=== PATIENT | male | born 1980 | race Asian ===

== ENCOUNTER 2023-09-28 17:10 | Emergency (ER) | payer MEDICAID ==
[~2023-09-28] VITALS: Ht 165.1 cm; Wt 68.0 kg
[2023-09-28 17:22] VITALS: BP_SYST 120; PULSE 96; RESP 15; TEMP 97; O2SAT 95
[2023-09-28 17:51] LABS: BASOPHILS # (AUTO) 0.1 K/uL (0.0-0.2); BASOPHILS % (AUTO) 0.4 % (0.0-2.0); EOSINOPHILS # (AUTO) 1.2 K/uL (0.0-0.4); EOSINOPHILS % (AUTO) 8.6 % (0.0-4.0); HEMATOCRIT 40.2 % (36-54); HEMOGLOBIN 13.4 g/dL (14.0-18.0); LYMPHOCYTES # (AUTO) 1.1 K/uL (1.0-5.5); LYMPHOCYTES % (AUTO) 8.1 % (20.5-51.5); MEAN CORPUSCULAR HEMOGLOBIN 29 pg (27-31); MEAN CORPUSCULAR HGB CONC 33 % (32-36); MEAN CORPUSCULAR VOLUME 86 fL (79.0-98.0); MONOCYTES # (AUTO) 0.9 K/uL (0.0-1.0); MONOCYTES % (AUTO) 6.6 % (1.7-9.3); NEUTROPHILS # (AUTO) 10.3 K/uL (1.8-7.7); NEUTROPHILS % (AUTO) 76.3 % (40.0-70.0); PLATELET COUNT (AUTO) 375 K/uL (130-430); RED BLOOD CELL COUNT(AUTO) 4.69 MIL/uL (4.2-6.2); RED CELL DISTRIBUTION WIDTH 13.1 % (9.0-15.0); WHITE BLOOD COUNT (AUTO) 13.5 K/uL (4.8-10.8)
[2023-09-28 18:23] LABS: CALCIUM 8.3 mg/dL (8.4-11.0); CREATININE 1.08 mg/dL (0.55-1.30); POTASSIUM 3.8 mmol/L (3.5-5.1)
[2023-09-28 18:37] LABS: BILIRUBIN,DIRECT 0.1 mg/dL (0.0-0.3); TOTAL BILIRUBIN 0.3 mg/dL (0.0-1.0); TOTAL PROTEIN, SERUM 7.5 g/dL (6.4-8.3)
[2023-09-28] MEDS ORDERED: DOXY100C5 PO (20:31)
[2023-09-28] MEDS ORDERED: IBUP-1971 PO (20:33)
[2023-09-28] MEDS ORDERED: HYDR-3917 PO (20:33)
[2023-09-28 21:05] LABS: BILIRUBIN,URINE NEGATIVE (NEGATIVE); BLOOD, URINE NEGATIVE (NEGATIVE); CLARITY/URINE CLEAR (CLEAR); COLOR,URINE YELLOW (YELLOW); GLUCOSE,URINE NEGATIVE (NEGATIVE); KETONES,URINE NEGATIVE (NEGATIVE); LEUKOCYTE ESTERASE ,URINE NEGATIVE (NEGATIVE); NITRITE, URINE NEGATIVE (NEGATIVE); PROTEIN URINE NEGATIVE (NEGATIVE); UROBILINOGEN,URINE 0.2 (0.2-1.0)
[2023-09-28] MEDS: cefTRIAXone 1 GM in LIDOCAINE 1%, 20 ML MDV 2.1 ML IM ONE (21:13)
[2023-09-28] MEDS: AZITHROMYCIN 250 MG TABLET PO ONE (21:13)
[2023-09-28] MEDS: IBUPROFEN 800 MG TABLET PO ONE (21:14)
[2023-09-28] MEDS: HYDROcodone/ACETAMIN 10-325 MG TAB PO ONE (21:14)
[2023-09-28 21:57] VITALS: TEMP 98.2
[2023-09-28 22:10] VITALS: BP_SYST 136; PULSE 99; RESP 18; O2SAT 98
== END 2023-09-28 22:10 | disposition home or self-care (01) ==
LOC: SED 17:10
DX: N45.1 Epididymitis (principal); Z91.018 Allergy to other foods
CPT/HCPCS: 99285; 80076; 80048; 81001; 85025; 36415; 76870; 96372; 82397; 81003; J0696; Q0144; J2001